=== PATIENT | male | born 1975 | race African-American/Black ===

== ENCOUNTER 2019-08-10 15:22 | Emergency (ER) | payer MEDICAID ==
[~2019-08-10] VITALS: Ht 162.6 cm; Wt 77.0 kg
[2019-08-10 16:45] VITALS: BP 137/71
[2019-08-10] MEDS ORDERED: TETRACAINE 0.5% OPHTH DROPS 4ML RIGHTEYE ONE (16:45)
[2019-08-10] MEDS ORDERED: IBUPROFEN 800MG TABLET PO ONE (16:45)
[2019-08-10] MEDS ORDERED: ACETAMINOPHEN 500MG TABLET PO ONE (16:45)
[2019-08-10] MEDS ORDERED: FLUORESCEIN SODIUM 1MG/STRIP RIGHTEYE ONE (16:45)
== END 2019-08-10 18:32 | disposition home or self-care (01) ==
LOC: ER 15:22
DX: H10.31 Unspecified acute conjunctivitis, right eye (principal); S05.01XA Injury of conjunctiva and corneal abrasion without foreign body, right eye, initial encounter; X58.XXXA Exposure to other specified factors, initial encounter; Y93.89 Activity, other specified; Y92.89 Other specified places as the place of occurrence of the external cause
CPT/HCPCS: 99284

== ENCOUNTER 2019-12-28 17:00 | Emergency (ER) | payer MEDICAID ==
[~2019-12-28] VITALS: Ht 165.1 cm; Wt 75.0 kg
[2019-12-28 17:17] VITALS: BP 119/75
== END 2019-12-28 20:45 | disposition left against medical advice (07) ==
LOC: ER 17:00
DX: Z53.21 Procedure and treatment not carried out due to patient leaving prior to being seen by health care provider (principal)

== ENCOUNTER 2019-12-28 21:46 | Emergency (ER) | payer MEDICAID ==
[~2019-12-28] VITALS: Ht 162.6 cm; Wt 75.0 kg
[2019-12-28] MEDS ORDERED: IBUPROFEN 600MG TABLET PO ONE (23:00)
[2019-12-28] MEDS ORDERED: AMOXICILLIN 500 MG CAPSULE PO ONE (23:00)
[2019-12-28 23:14] VITALS: BP 124/71
== END 2019-12-28 23:15 | disposition home or self-care (01) ==
LOC: ER 21:48
DX: K02.9 Dental caries, unspecified (principal); K04.7 Periapical abscess without sinus
CPT/HCPCS: 99283

== ENCOUNTER 2022-01-24 15:17 | Emergency (ER) | payer MEDICAID ==
[~2022-01-24] VITALS: Ht 177.8 cm; Wt 91.0 kg
[2022-01-24 15:37] VITALS: BP 118/86
[2022-01-24] MEDS ORDERED: LIDOCAINE HCL/PF 1% 10 MG/ML 5ML VIAL INFIL ONE (17:00)
[2022-01-24] MEDS ORDERED: TETANUS, DIPHTHERIA, PERTUSSIS VAC/PF 0.5ML (>10YR OLD) IM ONE (17:00)
[2022-01-24] MEDS ORDERED: AMOX1TAB16 MT (17:18)
== END 2022-01-24 17:44 | disposition home or self-care (01) ==
LOC: ER 15:17
DX: S61.511A Laceration without foreign body of right wrist, initial encounter (principal); W26.8XXA Contact with other sharp object(s), not elsewhere classified, initial encounter; Y93.89 Activity, other specified; Y92.9 Unspecified place or not applicable; Z98.890 Other specified postprocedural states
CPT/HCPCS: 12001; 90471; 90715; 99283; J3490